=== PATIENT | male | born 1955 ===

== ENCOUNTER 2017-02-08 09:35 | Day surgery (SDC) | payer MEDICAID ==
[2017-02-08] MEDS ORDERED: Acetaminophen-Codeine 300/30 mg Tab PO PRN (09:36)
[2017-02-08] MEDS ORDERED: Dextrose 5%/0.45% NS 1,000 ML IV SCH (09:45)
[2017-02-08] MEDS ORDERED: Lactated Ringer's 1,000 ML IV ONE ×2 (11:23)
[2017-02-08] MEDS ORDERED: ceFAZolin IV 1 gm in Dextrose 1 GM/50 ML BAG IVPB ONE (11:40)
[2017-02-08] MEDS ORDERED: Propofol 10 mg/ml Inj (20 ML) ONE (11:51)
[2017-02-08] MEDS ORDERED: Succinylcholine Chloride 20 mg/ml Syr (5 ml) IV ONE (11:52)
[2017-02-08 11:58] VITALS: BMI 30.4
[2017-02-08] MEDS ORDERED: HYDROmorphone 0.5 mg/0.5 ml ISec ONE ×2 (12:28→12:42)
[2017-02-08] MEDS: HYDROmorphone 0.5 mg/0.5 ml ISec IVP PRN ×2 (12:28→12:43)
[2017-02-08] MEDS ORDERED: Lactated Ringer's 1,000 ML IV SCH (12:30)
[2017-02-08] MEDS ORDERED: HYDROmorphone 0.5 mg/0.5 ml ISec IVP PRN (12:50)
[2017-02-08 13:39] VITALS: PULSE 65; O2SAT 100
[2017-02-08 14:29] VITALS: BP 108/62; RESP 16; TEMP 97.8
== END 2017-02-08 14:12 | disposition home or self-care (01) ==
LOC: C.SDS 09:35
PROVIDERS: ATTEND Otolaryngology
DX: C13.1 Malignant neoplasm of aryepiglottic fold, hypopharyngeal aspect (principal); I25.119 Atherosclerotic heart disease of native coronary artery with unspecified angina pectoris; Z95.5 Presence of coronary angioplasty implant and graft; I25.2 Old myocardial infarction; I50.9 Heart failure, unspecified; I11.0 Hypertensive heart disease with heart failure; E11.9 Type 2 diabetes mellitus without complications; E78.5 Hyperlipidemia, unspecified; J44.9 Chronic obstructive pulmonary disease, unspecified; Z72.0 Tobacco use; Z98.890 Other specified postprocedural states; Z79.84 Long term (current) use of oral hypoglycemic drugs; Z79.82 Long term (current) use of aspirin; Z79.899 Other long term (current) drug therapy
CPT/HCPCS: 31535; 82948; 88305; J0690; J1100; J1170; J2704; J3010; J7120

== ENCOUNTER 2018-08-23 08:48 | Outpatient (CLI) | payer MEDICAID | END 2018-08-23 08:49 | disposition home or self-care (01) | LOC: C.LAB 08:48 | DX: Z01.818 Encounter for other preprocedural examination (principal) ==